=== PATIENT | female | born 1975 | race African-American/Black ===

== ENCOUNTER → 2021-05-25 10:05 | Outpatient (CLI) | payer BC, SELFPAY ==
--- NOTE | ~2021-05-25 | MM_ITS ---
EXAMINATION: MM screening [facility] HISTORY: Screening TECHNIQUE: Craniocaudal and mediolateral oblique 3-D tomosynthesis images were obtained and synthetic 2-D images were generated. CAD analysis was submitted and interpreted. COMPARISON: Comparison to multiple prior studies sequentially, with oldest reviewed study dated 03/2018. BREAST PARENCHYMAL COMPOSITION: There are scattered areas of fibroglandular density. FINDINGS: There is no evidence of suspicious mass, calcification, or architectural distortion to sugg est malignancy in either breast. There has been no suspicious interval change. IMPRESSION: 1. No mammographic evidence of malignancy. 2. Recommend routine screening mammography in one year. BI-RADS Category 1: Negative Reviewed, dictated and finalized at location A.
== END ==
PROVIDERS: PCP Internal Medicine; Visit Provider Obstetrics & Gynecology
DX: Z12.31 Encounter for screening mammogram for malignant neoplasm of breast (principal)
CPT/HCPCS: 77063; 77067

== ENCOUNTER 2024-04-21 10:47 | Outpatient (CLI) | payer BC, SELFPAY ==
--- NOTE | ~2024-04-21 | MM_ITS ---
EXAMINATION: MM screening [facility] HISTORY: Screening TECHNIQUE: Craniocaudal and mediolateral oblique 3-D tomosynthesis images were obtained and synthetic 2-D images were generated. CAD analysis was submitted and interpreted. COMPARISON: Comparison to multiple prior studies sequentially, with oldest reviewed study dated 09/05. BREAST PARENCHYMAL COMPOSITION: Not dense: There are scattered areas of fibroglandular density. FINDINGS: There is no evidence of suspicious mass, calcification, or architectural distortion to sugg est malignancy in either breast. There has been no suspicious interval change. IMPRESSION: 1. No mammographic evidence of malignancy. 2. Recommend routine screening mammography in one year. BI-RADS Category 1: Negative Reviewed, dictated and finalized at location B.
== END 2024-04-21 10:48 ==
PROVIDERS: PCP Internal Medicine
DX: Z12.31 Encounter for screening mammogram for malignant neoplasm of breast (principal)
CPT/HCPCS: 77063; 77067

== ENCOUNTER 2025-09-08 15:20 | Emergency (ER) | payer OTHER, SELFPAY ==
--- NOTE | 2025-09-08 15:21 | ED_ITS ---
HPI - Extremity Injury (Lower) General Chief Complaint: Extremity Injury, Lower Stated Complaint: FALL Time Seen by Provider: 09/08/25 15:21 Source: patient Mode of arrival: ambulatory Limitations: no limitations History of Present Illness HPI Narrative: Bev is a 50-year-old female patient presenting to the clinic today with complaints of multiple injury sustained from falling/tripping on concrete on August 31. She reports she is having pain to the left ankle, bilateral knees, and bilateral sides/back spasms. She has been taking naproxen for the pain and states that this is not helping very much. She was seen in the ER initially for her injuries and had x-rays done and they were negative per patient. Is mainly concerned about her knees and left ankle. Has healing abrasions to bilateral anterior knees. States she had x-rays of left ankle, bilateral knee, and left hip. Related Data Home Medications ?Medication ?Instructions ?Recorded ?Confirmed ?Last Taken ?Type albuterol sulfate 90 mcg/actuation inhalation 09/08/25 Unknown History aerosol inhaler amoxicillin 500 mg capsule mg 09/08/25 Unknown Histor y aspirin 81 mg tablet,delayed mg 09/08/25 Unknown Hist ory release buspirone 5 mg tablet mg 09/08/25 Unknown History escitalopram oxalate 5 mg tablet mg 09/08/25 Unknown History ketorolac 10 mg tablet mg 09/08/25 Unknown History methocarbamol 500 mg tablet mg 09/08/25 Unknown Histo ry metoprolol succinate 25 mg mg PO 09/08/25 Unknown His tory tablet,extended release 24 hr naproxen 500 mg tablet mg 09/08/25 Unknown History spironolactone 25 mg tablet mg 09/08/25 Unknown Histo ry Allergies Allergy/AdvReac Type Severity Reaction Status Date / Time No Known Allergies Allergy Verified 09/08/25 15:36 Review of Systems Review of Systems: Pertinent positives per HPI. Patient denies any fever, chills, rash, headache, visual changes, dizziness, cough, runny nose, sore throat, shortness of breath, chest pain, palpitations, nausea, vomiting, diarrhea, constipation, abdominal pain, or any urinary issues. PMFSH Comments At the time of my signature, I reviewed and agree with the nursing past medical, surgical, social, and family history. There is no relevant family history pertinent to the patient complaint. Exam Narrative: General: Well-developed, well nourished, in no apparent distress Head: Normocephalic, atraumatic. Cardio: Regular rate and rhythm, s1 and s2 normal, no murmur appreciated. Resp: Clear to auscultation bilaterally, no rhonchi, rales, wheezing or rubs. Musculoskeletal: No deformity, tenderness to palpation over the lateral left ank le, anterior knee with healing abrasions to bilateral anterior knee, pain to palpation over the lower lateral sides, pain with movement of the left leg in the left groin radiating into lower abdomen, muscle strength strong and equal, peripheral pulse strong, no edema, no cyanosis, normal gait and station Course Course Emergency Course: Portions of this record may have been created with voice recognition software. Level of Care: Express Care Visit Vital Signs Vital signs: Vital Signs Temperature 35.9 C L 09/08/25 15:35 Pulse Rate 86 09/08/25 15:35 Respiratory Rate 16 09/08/25 15:35 Blood Pressure 148/91 H 09/08/25 15:35 Pulse Oximetry 98 09/08/25 15:35 Temperature 35.9 C L 09/08/25 15:35 Pulse Rate 86 09/08/25 15:35 Respiratory Rate 16 09/08/25 15:35 Blood Pressure 148/91 H 09/08/25 15:35 Pulse Oximetry 98 09/08/25 15:35 Vital signs reviewed MDM - Extremity Injury (Lower) MDM Narrative Medical decision making narrative: At the time of visit patient is resting comfortably on the exam table. Patient appears to be nontoxic. Complaints of multiple injury sustained from falling/tripping on concrete on August 31. She reports she is having pain to the left ankle, bilateral knees, and bilateral sides/back spasms. She has been taking naproxen for the pain and states that this is not helping very much. She was seen in the ER initially for her injuries and had x-rays done and they were negative per patient. Is mainly concerned about her knees and left ankle. Has healing abrasions to bilateral anterior knees. On exam patient has tenderness to palpation over the lateral left ankle, anterior knee with abrasion to anterior knee, pain to palpation over the lower lateral sides, pain with movement of the left leg in the left groin radiating into lower abdomen. Plan: Patient is complaining of left ankle pain and bilateral knee pain. Also reports some spasms in her back/sides. She already has a prescription for a muscle relaxer but has not taken any. States that the naproxen does not seem to be helping the pain. Offer to send patient a prescription for Medrol Dosepak and encouraged her to use a muscle relaxer as needed/prescribed. Recommend follow-up with PCP/orthopedic provider to determine if patient needs physical therapy/further diagnostic testing. X-ray negative per patient at another facility. Explained to the patient that we can only do x-rays in the clinic and she may need further diagnostic imaging to rule out other causes for pain/injury. Referral to Dr. Luna was given to the patient. Recommend requesting records prior to follow up. Supportive measures were discussed with the patient and they voiced understanding discharge instructions and agrees to treatment plan. Return precautions reviewed. Differential Diagnosis Differential diagnosis: Likely ankle sprain and strain, acute internal derangement of knee, ankle fracture and other (Knee abrasions, knee pain, knee sprain, muscles sprain/muscle spasms,) Discharge Plan Discharge Clinical Impression: Acute bilateral knee pain, Abrasion, Muscle strain Left ankle sprain Qualifiers: Encounter type: initial encounter Involved ligament of ankle: unspecified l igament Qualified Code(s): S93.402A - Sprain of unspecified ligament of left ankle, initial encounter Patient Disposition: Home Condition: Stable Instructions: Antibiotic Form, Abrasion (ED), Musculoskeletal Pain (ED), Knee Pain (ED) Additional Instructions: Rest, ice, elevate, and wear truong wrap as directed Take any prescription medication only as prescribed. Be mindful of sedation precautions given to you if taking a muscle relaxer. May use heat or ice to the affected area Consider massage or chiropractor adjustment if this was discussed with provider May use blue emu, lidocaine patches, or asper cream to affected area- do not apply heat or ice directly over cream- can cause burn. Complete appropriate stretching exercises. Follow up with your PCP in 3-5 days if symptom persist. May follow-up with orthopedic provider-Dr. Luna-may call office tomorrow morning to schedule appointment Patient Language: Lao Prescriptions: New methylprednisolone [Medrol (Bar)] 4 mg tablets,dose pack See Rx Instructions PO .COMPLEX Qty: 21 0RF Rx Instructions: orally per package directions No Action amoxicillin 500 mg capsule methocarbamol 500 mg tablet buspirone 5 mg tablet aspirin 81 mg tablet,delayed release (DR/EC) spironolactone 25 mg tablet ketorolac 10 mg tablet metoprolol succinate 25 mg tablet extended release 24 hr PO albuterol sulfate 90 mcg/actuation HFA aerosol inhaler INHALATION naproxen 500 mg tablet escitalopram oxalate 5 mg tablet Follow-up/Referrals: UNKNOWN,DOCTOR [Non-Staff] Time of Disposition: 15:47 Quality NIHSS Nursing Documentation ED NIHSS nursing documentation: reviewed/agree
[2025-09-08 15:35] VITALS: BP 148/91; PULSE 86; RESP 16; TEMP 35.9; O2SAT 98
== END 2025-09-08 15:55 | disposition home or self-care (01) ==
PROVIDERS: Emergency Provider Nurse Practitioner Family; PCP Internal Medicine
DX: S93.402A Sprain of unspecified ligament of left ankle, initial encounter (principal); S80.212A Abrasion, left knee, initial encounter; S80.211A Abrasion, right knee, initial encounter; T14.8XXA Other injury of unspecified body region, initial encounter; Z79.1 Long term (current) use of non-steroidal anti-inflammatories (NSAID); Z79.899 Other long term (current) drug therapy; W01.0XXA Fall on same level from slipping, tripping and stumbling without subsequent striking against object, initial encounter
CPT/HCPCS: 99213; G0463